=== PATIENT | male | born 1960 | race Caucasian/White ===

== ENCOUNTER 2018-02-27 09:54 | Outpatient (CLI) | payer SELFPAY ==
--- NOTE | 2018-02-27 16:03 | EKG ---
Test Reason : Blood Pressure : / mmHG Vent. Rate : 060 BPM Atrial Rate : 060 BPM P-R Int : 144 ms QRS Dur : 086 ms QT Int : 394 ms P-R-T Axes : 050 051 063 degrees QTc Int : 394 ms Normal sinus rhythm Normal ECG Confirmed by ERYN FERRER ([id number]) on 02/27/2018 4:02:39 PM Referred By: [email or web address] Confirmed By:ERYN FERRER
== END 2018-02-27 09:55 | disposition home or self-care (01) ==
LOC: LABBT 09:54
PROVIDERS: ATTEND Surgery
DX: Z01.810 Encounter for preprocedural cardiovascular examination (principal); K40.90 Unilateral inguinal hernia, without obstruction or gangrene, not specified as recurrent
CPT/HCPCS: 93005; 93010